=== PATIENT | female | born 1930 | race Caucasian/White ===

== ENCOUNTER → 2017-03-02 | Outpatient (CLI) | payer MEDICARE, BC ==
[2016-06-15 10:49] VITALS: BP 130/75
[~2017-03-02] MED LIST: ACET500T33 PO; ASPI81TA2 PO; CALC600T4 PO; GABA-586 PO; LOSA1TAB16 PO; MULT-99 PO; OMEP20CA9 PO; POTA2.5T PO; RALO60TA PO; TRAM50TA PO; VANC125C2 PO
--- NOTE | 2017-03-02 15:48 | KCIC ---
PROCEDURE MRI of the lumbar spine without contrast 03/02/2017 HISTORY Low back pain with left leg pain for several months. TECHNIQUE Unenhanced T1 weighted, T2 weighted and inversion recovery sagittal and T1 weighted and T2 weighted axial images of the lumbar spine were obtained. FINDINGS Mild S-shaped curvature of the thoracolumbar spine is seen. Degenerative signal changes are seen involving all of the discs of the lumbar spine. Degenerative signal changes are seen within the marrow surrounding these discs. Loss of height of the L1-2 and L2-3 discs is seen. Old compression deformity of the superior endplate of the L4 vertebral body is seen. There is no MRI evidence of an acute compression fracture involving the lumbar vertebrae. The conus medullaris is normal in morphology, position, and signal characteristics. At the T12-L1 disc space there is a mild generalized disc bulge. This is eccentric to the right. Degenerative changes are seen involving the facet joints bilaterally. These findings do not result in significant central spinal canal or neural foraminal stenosis. At the L2-3 disc space there is moderate generalized disc bulge. This is eccentric to the right. Degenerative changes are seen involving the facet joints bilaterally. There is moderate ligamentum flavum hypertrophy bilaterally. These findings when combined result in mild central spinal canal stenosis. Mild left greater than right neural foraminal stenosis is seen. At the L3-4 disc space there is a mild to moderate generalized disc bulge. Degenerative changes are seen involving the facet joints bilaterally. There is moderate ligamentum flavum hypertrophy bilaterally. These findings when combined result in mild to moderate left greater than right central spinal canal stenosis. Mild to moderate left greater than right neural foraminal stenosis is seen. At the L4-5 disc space there is a moderate generalized disc bulge. Degenerative changes are seen involving the facet joints bilaterally. There is moderate ligamentum flavum hypertrophy bilaterally. These findings when combined result in mild central spinal canal stenosis. Mild to moderate right greater than left neural foraminal stenosis is seen. At the L5-S1 disc space there is mild to moderate generalized disc bulge. This is eccentric to the right. Degenerative changes are seen involving the facet joints bilaterally. There is mild ligamentum flavum hypertrophy bilaterally. These findings when combined do not result in significant central flow could of stenosis. Mild right neural foraminal stenosis is seen. The left neural foramina is patent. IMPRESSION The changes of degenerative disc disease are seen throughout the lumbar spine. These findings result in mild central spinal canal stenosis at L2-3 and L4-5 and mild to moderate left greater than right central spinal canal stenosis at L3-4. Multilevel neural foraminal stenosis is seen as outlined above. Electronically signed by: Neeraj Abdalla MD (March 02, 2017 15:46:50)
== END | disposition home or self-care (01) ==
LOC: KCIC MRI 12:35
PROVIDERS: ATTEND Nurse Practitioner Gerontology
DX: M51.36 Other intervertebral disc degeneration, lumbar region (principal); M48.06 Spinal stenosis, lumbar region
CPT/HCPCS: 72148

== ENCOUNTER → 2017-03-30 | Outpatient (CLI) | payer MEDICARE, BC ==
[2016-06-15 10:49] VITALS: BP 130/75
[~2017-03-30] MED LIST changes: +ASPI-630 PO; -ASPI81TA2 PO; +IOHEXOL 180 MG/ML 10 ML VIAL. ONE; +methylPREDNISolone ACETATE 40 MG/ML VIAL. ONE; +methylPREDNISolone ACETATE 80 MG/ML VIAL. ONE
--- NOTE | 2017-03-31 00:32 | PAIN ---
DATE OF SERVICE: 03/30/2017 INITIAL CONSULTATION FOR PAIN CLINIC CHIEF COMPLAINT: Low back and left lower extremity pain. HISTORY OF PRESENT ILLNESS: This is an 86-year-old female who presents with history of pain for about a year, worse over the past few months, radiating from the low back into her left hip, posterior, lateral and anterior aspect of the thigh and the posterior knee across the low back, worse on the right than the left, but present bilaterally. The patient reports it is intermittent in intensity, but always present, changes during the day, aching, sharp, dull with radiating pain into the thighs, noted mostly in the lateral upper thigh than the medial and anterior lower thigh and to the posterior knee as well. The patient reports she had a full workup with Orthopedics including x-rays and a greater trochanteric bursa injection on the left, which was not successful in decreasing the pain. The patient reports it is worse with standing and walking, better with sitting. She reports it does not awaken her from sleep at night, does not affect her bowel or bladder control, but does affect her ability to walk. She is using a cane, which she has with her today in her right hand. The patient reports her disability rating from 0 to 10, 10 being the worst, is a 5 with family and home responsibilities, 7 with recreation and 3 with social activity and occupation, 1 with self care and 0 with life support activities. The patient has not had any form of physical therapies currently or other treatments just significant pain as noted. The patient did have MRI scan of the lumbar spine showing degenerative disk disease throughout the lumbar spine resulting in mild central spinal canal stenosis at L2-L3 and L4-L5, mild to moderate left greater than right central spinal canal stenosis at L3-L4. PAST MEDICAL HISTORY: Significant for hypertension, cataracts, diverticulosis, gastroesophageal reflux, arthritis, osteopenia, osteoarthritis. PREVIOUS SURGERY: Include bilateral cataract extractions, right total hip replacement, bilateral knee replacements and tonsillectomy. CURRENT MEDICATIONS: Include multivitamins, calcium, potassium, losartan, tramadol, acetaminophen, Avista, daily baby aspirin and omeprazole as well as gabapentin. ALLERGIES: THE PATIENT IS ALLERGIC TO AMOXICILLIN. FAMILY HISTORY: Significant for no major medical problems or conditions that she is aware of. SOCIAL HISTORY: The patient does not drink alcohol, does not smoke. Lives locally in [place], [place] and reports she is currently retired. REVIEW OF SYSTEMS: The patient's review of systems is positive for those items mentioned in history of present illness. All systems reviewed and otherwise negative. It is complete, full and well documented on the patient's chart. PHYSICAL EXAMINATION: VITAL SIGNS: Today, blood pressure is ____, pulse ____, respirations 16, temperature 98.5 degrees Fahrenheit. Height is 4 feet 11 inches, weight is 126 pounds. GENERAL: The patient is awake, alert, oriented, appropriate, very pleasant demeanor. HEENT: Head shows normocephalic, atraumatic. Extraocular movements are intact and symmetrical. Oral cavity, mucous membranes are moist and pink. Dentition is intact. NECK: Shows anterior throat supple without palpable lymphadenopathy noted. Swallow reflex is symmetrical. CHEST: Shows normal on inspection. Breath sounds are clear to auscultation bilaterally. HEART: Shows S1 and S2 clear. No murmurs auscultated. ABDOMEN: Soft, nontender, nondistended. No palpable organomegaly, no rebound or guarding demonstrated. BACK: The patient's back shows spine grossly in the midline. Slight exaggeration of thoracic kyphosis and mild flattening of lumbar lordotic curvature. No previous bruises, lesions, rashes or scars are noted. Lumbar paraspinous musculature shows symmetrical on inspection. On palpation shows a firm, but normal muscle girth with palpation and symmetrical. Tender diffusely in the low lumbar distribution bilaterally, but only diffusely and only in the paraspinous muscles. No tenderness over the spinous processes. No tenderness over the sacrum and sacroiliac regions. The patient shows good rotation and motion of lumbar spine, both laterally greater than 10 degrees right and left as well as extension greater than 10 degrees, forward flexion 45 degrees without pain reported. The patient's lower extremities show deep tendon reflexes at 1+ in the patellar and tendo calcaneus tendons. Motor exam is approximately 4 on a scale of 5, but equal and symmetrical bilaterally. Peripheral pulses are 1+ in posterior tibial and dorsalis pedis pulses. No peripheral edema is noted. No clubbing, no cyanosis. Lower extremities are warm and dry to touch, equal in color and appearance. The patient is able to stand, stand on her toes without significant difficulty, but she does lose balance fairly easily when standing on her toes. She is walking with a slight shuffling gait, appears to favor the left lower extremity slightly against cane in her right hand to ambulate. IMPRESSION: 1. This is an 86-year-old female with approximate 1 year history of increasing pain in low back across into the left lower extremity with some radicular qualities. 2. MRI scan of lumbar spine as noted. 3. Hypertension. 4. Arthritis. PLAN: Options were discussed with the patient including conservative medical management, physical therapy, and interventional techniques. She would like to proceed with interventional techniques. We discussed a lumbar epidural steroid injection using description as well as anatomical models to describe the procedure. Risks were then discussed including, but not limited to bleeding, infection, possibility of epidural hematoma, subsequent neurologic compromise, dural puncture, headaches, spinal cord and/or nerve damage, side effects of steroid medication and poor results regarding pain control. The patient understands and wishes to proceed. The patient will return to clinic in approximately 2 weeks for followup, was counseled on return appointment, activity level and side effects to be aware of. DIAGNOSES: Lumbar radiculopathy with lumbar degenerative disk disease, lumbar spinal stenosis. PROCEDURE: Lumbar epidural steroid injection in translaminar approach at L3-4 level using C-arm fluoroscopic guidance under sterile prep and drape and local anesthetic. MEDICATIONS INJECTED: Is 120 mg of Depo-Medrol plus 10 mL preservative-free normal saline and 2 mL of Isovue for contrast. CONDITION AT DISCHARGE: Stable. The patient tolerated procedure well, had no complications. YARELY VILLALPANDO MD DR: SONNY/shekhar JOB#: [id number] / [id number]
== END | disposition home or self-care (01) ==
LOC: PNCL 10:00
PROVIDERS: ATTEND Anesthesiology
DX: M51.16 Intervertebral disc disorders with radiculopathy, lumbar region (principal); M48.06 Spinal stenosis, lumbar region; M19.90 Unspecified osteoarthritis, unspecified site; I10 Essential (primary) hypertension; K21.9 Gastro-esophageal reflux disease without esophagitis; Z98.41 Cataract extraction status, right eye; Z98.42 Cataract extraction status, left eye; Z96.642 Presence of left artificial hip joint; Z96.653 Presence of artificial knee joint, bilateral; Z88.0 Allergy status to penicillin; Z79.82 Long term (current) use of aspirin
CPT/HCPCS: 62323; J1030; J1040

== ENCOUNTER → 2017-04-13 | Outpatient (CLI) | payer MEDICARE, BC ==
[2016-06-15 10:49] VITALS: BP 130/75
== END | disposition home or self-care (01) ==
LOC: PNCL 10:45
PROVIDERS: ATTEND Anesthesiology
DX: M51.16 Intervertebral disc disorders with radiculopathy, lumbar region (principal); M48.06 Spinal stenosis, lumbar region; Z86.14 Personal history of Methicillin resistant Staphylococcus aureus infection
CPT/HCPCS: 62323; J1030; J1040

== ENCOUNTER 2017-05-28 15:15 | Inpatient (IN) | payer MEDICARE, BC ==
[~2017-05-28] VITALS: Ht 147.3 cm; Wt 64.2 kg
[~2017-05-28 15:15] MED LIST changes: -IOHEXOL 180 MG/ML 10 ML VIAL. ONE; -methylPREDNISolone ACETATE 40 MG/ML VIAL. ONE; -methylPREDNISolone ACETATE 80 MG/ML VIAL. ONE
[2017-05-28] MEDS ORDERED: IV NORMAL SALINE 1000ML BAG 1,000 ML IV ONE (16:15)
[2017-05-28] MEDS ORDERED: HYDROcodone/APAP 5/325MG 1 TAB TABLET PO ONE (16:15)
[2017-05-28 17:11] LABS: BASO # 0.1 x10^3/uL (0.0-0.2); BASO % 1 % (0-3); EOS % 0 % (0-3); HEMATOCRIT 26.1 % (36.0-47.0); HEMOGLOBIN 8.7 g/dL (12.0-15.5); LYMPH # 1.5 x10^3/uL (1.0-4.8); LYMPH % 11 % (24-48); MEAN CORPUSCULAR HEMOGLOBIN 28 pg (25-35); MEAN CORPUSCULAR HGB CONC 34 g/dL (31-37); MEAN CORPUSCULAR VOLUME 85 fL (79-100); MONO % 9 % (0-9); NEUT % 79 % (31-73); PLATELET COUNT 375 x10^3/uL (140-400); RED BLOOD COUNT 3.08 x10^6/uL (3.50-5.40); RED CELL DISTRIBUTION WIDTH 14.6 % (11.5-14.5); WHITE BLOOD COUNT 13.7 x10^3/uL (4.0-11.0)
--- NOTE | 2017-05-28 17:12 | PHYS DOC ---
Past Medical History Past Medical History: Arthritis, GERD, Hypertension Additional Past Medical Histor: Osteoporosis, Chronic back pain Past Surgical History: Hip Replacement, Knee Replacement, Tonsillectomy, Other Additional Past Surgical Histo: Bx knee, R hip, Colectomy Alcohol Use: None Drug Use: None Adult General Chief Complaint Chief Complaint: UPPER EXTREMITY PAIN HPI HPI Patient is a 87 year old female who presents with nontraumatic right shoulder pain. Patient has history of arthritis. Patient she right shoulder pain is worse with palpation, range of motion. Patient has taken ibuprofen at home with limited relief. Of note, patient also was treated for this week for cellulitis of bilateral lower extremities. Patient is currently on clindamycin 3 times daily. She denies nausea vomiting or chills and sweats. On exam, the patient has diffuse erythema with mild swelling and warmth over both lower extremities, which the patient states is worsened since first treated 5 days ago. No fever chills or sweats. No other acute symptoms or complaints.Patient's PCP is Dr. Huizar. Review of Systems Review of Systems Review symptoms as per history of present illness. Current Medications Current Medications Current Medications Medications (Trade) Dose Ordered Sig/Tabatha Start Time Stop Time Status Last Admin Dose Admin Acetaminophen/ Hydrocodone Bitart (Lortab 5/325) 1 tab 1X ONCE 05/28/17 16:15 05/28/17 16:16 DC 05/28/17 16:37 1 TAB Sodium Chloride 1,000 ml @ 1,000 mls/hr 1X ONCE 05/28/17 16:15 05/28/17 17:14 Allergies Allergies Allergies Coded Allergies Type Severity Reaction Last Updated Verified No Known Drug Allergies 06/12/16 No Physical Exam Physical Exam Constitutional: Well developed, well nourished, no acute distress, non-toxic appearance. [] HENT: Normocephalic, atraumatic, bilateral external ears normal, oropharynx moist, no oral exudates, nose normal. [] Eyes: PERRLA, EOMI, conjunctiva normal, no discharge. [] Neck: Normal range of motion, no tenderness, supple, no stridor. [] Cardiovascular:Heart rate regular rhythm, no murmur [] Lungs & Thorax: Bilateral breath sounds clear to auscultation [] Abdomen: Bowel sounds normal, soft, no tenderness. [] Skin: Warm, dry, no erythema, no rash. [] Back: No tenderness.[] Extremities: Right shoulder pain without deformity, bruising and swelling. Pain with palpation and ROM. No motor weakness or loss sensation[] Neurologic: Alert and oriented X 3, normal motor function, normal sensory function, no focal deficits noted. [] Psychologic: Affect normal, judgement normal, mood normal. [] Current Patient Data Vital Signs Vital Signs Date Time Temp Pulse Resp B/P (MAP) Pulse Ox O2 Delivery O2 Flow Rate FiO2 05/28/17 15:31 100.9 96 18 127/61 (83) 97 Room Air 100.9 EKG EKG [] Radiology/Procedures Radiology/Procedures [XR chest/ Right shoulder: no displaced fracture, no acute pulmonary infiltrate. ] Course & Med Decision Making Course & Med Decision Making Pertinent Labs and Imaging studies reviewed. (See chart for details) [Patient febrile with cellultiis of B lower extremities. IVF, abx given. VSS. Dr. Mitchell to admit. ] Dragon Disclaimer Dragon Disclaimer This electronic medical record was generated, in whole or in part, using a voice recognition dictation system. Departure Departure Disposition: ADMITTED INPATIENT Admitting Physician: Sergio Mitchell Referrals: RICHARD HUIZAR MD (PCP) MARIA GUADALUPE CLANCY DO May 28, 2017 17:12
[2017-05-28] MEDS ORDERED: VANCOMYCIN 1GM IVPB FOR OMNI 250 ML IV ONE (17:30)
[2017-05-28 17:31] LABS: CALCIUM 8.6 mg/dL (8.5-10.1); CREATININE 1.6 mg/dL (0.6-1.0); GFR 30.4; POTASSIUM 3.8 mmol/L (3.5-5.1)
[2017-05-28 17:37] LABS: ALBUMIN/GLOBULIN RATIO 0.8 (1.0-1.7); C-REACTIVE PROTEIN 45.4 mg/L (0-3.3); TOTAL BILIRUBIN 0.3 mg/dL (0.2-1.0)
[2017-05-28] MEDS ORDERED: ONDANSETRON PF 4 MG/2 ML VIAL. IV PRN (18:15)
[2017-05-28 19:00] VITALS: BP 119/62
[2017-05-28] MEDS ORDERED: FURO40TA4 PO (20:36)
[2017-05-28] MEDS ORDERED: TRAM50TA PO (20:36)
[2017-05-28] MEDS ORDERED: BETA1TAB10 PO (20:36)
[2017-05-28] MEDS: IV NORMAL SALINE 1000ML BAG 1,000 ML IV SCH (21:17)
[2017-05-28 23:35] VITALS: BP 117/55
[2017-05-29] MEDS ORDERED: traMADol 50 MG TABLET PO PRN (00:15)
[2017-05-29] MEDS ORDERED: traMADol 50 MG TABLET PO ONE (00:15)
[2017-05-29 03:36] VITALS: BP 127/50
--- NOTE | 2017-05-29 04:48 | ACF ---
Admit Criteria Forms Admit Criteria Forms Admit Criteria Forms CELLULITIS Clinical Indications for Admission to Inpatient Care ([place]/check or initial the applicable condition/criteria) Admission is indicated for ANY ONE of the following(1)(2)(3)(4)(5): [ ]I. Limb-threatening infection [ ]II. High-risk comorbid condition as indicated by ANY ONE of the following: [ ]a) Uncontrolled diabetes (eg, HbA1c greater than 10% (0.1)) [ ]b) Cirrhosis [ ]c) Neutropenia [ ]d) Asplenia(12) [ ]e) Immunosuppression [ ]f) Symptomatic heart failure [ ]III. Failure of outpatient therapy as indicated by ALL of the following(6): [ ]a) Progression or no improvement after adequate trial (minimum of 48 hours, with longer period for stable lower extremity infection) [ ]b) Adequate antibiotic regimen as indicated by use of ANY ONE of the following: [ ]i) First-generation cephalosporin (e.g., cephalexin) [ ]ii) Antistaphylococcal penicillin (e.g., dicloxacillin) [ ]iii) Penicillin-allergic patient regimen (clindamycin, extended-spectrum fluoroquinolone, or doxycycline) [ ]iv) Resistant organism (eg, methicillin-resistant Staphylococcus aureus) regimen (7)(8) [ ]c) Outpatient intravenous therapy regimen is not appropriate due to ANY ONE of the following. (9)(10) [ ]i) It was tried and was not successful (eg, progression of infection). [ ]ii) It is not available or cannot be arranged in a clinically appropriate time frame (e.g., the next day). [ ]iii) Clinical presentation (eg, acuity of infection, rapidity of progression, confirmed or suspected bacteremia) is judged to require ALL of the following: [ ]1) Immediate initiation of intravenous therapy ( eg, cannot wait for next day) [ ]2) Intensity of patient monitoring and observation (eg, vital sign measurement, checks for infection progression) that cannot be provided at other than inpatient level of care [ ]IV. Altered Mental status that is severe or persistent [ ]V. Bacteremia [ ]. Hemodynamic instability [ ]VII. Suspected necrotizing soft tissue infection (e.g., gas in tissue)(13)( 14)(15) [ ]VIII. Orbital infection (16)(17) [ ]XI. Associated surgical procedure (e.g., abscess drainage, debridement) not amenable to outpatient, emergency department, or observation care [ ]X. Cutaneous gangrene(19) [ ]XII. High fever (temperature greater than 39.5 degrees C (103.1 degrees F) (oral)) not responsive to outpatient, emergency department, or observation care therapy(20)(21) [X ]XIII. Inpatient admission required [A]rather than observation care (Also use Cellulitis: Observation Care as appropriate) because of ANY ONE of the following(22)(23): [ ]a) Periorbital or perineal infection that is severe or worsening [ X]b) Severe pain requiring acute inpatient management [ ]b) IV fluid to replace significant ongoing (e.g., for over 24 hours) losses (greater than 3 L/m2 per day) [ ]b) Compartment syndrome monitoring (24) [ ]b) Strict or protective (eg, laminar flow) isolation) [ ]b) Urgent debridement or skin grafting [ ]b) Bone or joint debridement [ ]b) Immediate inpatient surgery [ X]b) Other condition, treatment, or monitoring requiring inpatient admission Extended stay beyond goal length of stay may be needed for(18)(36)(37)(38)(39)( 40)(41) [ ]a) Necrotizing soft tissue infection or fasciitis(13)(42) [ ]b) Gram-negative infection [ ]c) Methicillin-resistant Staphylococcal aureus (MRSA) infection(7)(43) [ ]d) Peripheral venous insufficiency with cellulitis [ ]e) Extensive edema [ ]f) Sepsis or continued Hemodynamic instability [ ]g) Continued high fever or mental status change [ ]h) Bacteremia(43) [ ]i) Active serious comorbid conditions ( eg, heart failure, renal insufficiency) The original [employer] content created by [employer] has been revised. The portions of the content which have been revised are identified through the use of italic text, and [employer] has neither reviewed nor approved the modified material. All other unmodified content is copyright [employer] Please see references footnoted in the original [employer] edition 2014 DAVID GAMINO May 29, 2017 04:48
[2017-05-29 05:35] LABS: BASO # 0.1 x10^3/uL (0.0-0.2); BASO % 1 % (0-3); EOS % 2 % (0-3); HEMATOCRIT 22.3 % (36.0-47.0); HEMOGLOBIN 7.6 g/dL (12.0-15.5); LYMPH # 1.3 x10^3/uL (1.0-4.8); LYMPH % 15 % (24-48); MEAN CORPUSCULAR HEMOGLOBIN 29 pg (25-35); MEAN CORPUSCULAR HGB CONC 34 g/dL (31-37); MEAN CORPUSCULAR VOLUME 85 fL (79-100); MONO % 12 % (0-9); NEUT % 70 % (31-73); PLATELET COUNT 320 x10^3/uL (140-400); RED BLOOD COUNT 2.63 x10^6/uL (3.50-5.40); RED CELL DISTRIBUTION WIDTH 14.6 % (11.5-14.5); WHITE BLOOD COUNT 8.9 x10^3/uL (4.0-11.0)
[2017-05-29 05:59] LABS: CALCIUM 7.8 mg/dL (8.5-10.1); CREATININE 1.3 mg/dL (0.6-1.0); GFR 38.7; POTASSIUM 3.6 mmol/L (3.5-5.1)
[2017-05-29] MEDS: LACTOBACILLUS ACIDOPH & BULGAR 1 TABLET. PO SCH ×3 (07:56→17:50)
[2017-05-29] MEDS: IV NORMAL SALINE 1000ML BAG 1,000 ML IV SCH (07:56)
[2017-05-29 08:01] VITALS: BP 138/85
--- NOTE | 2017-05-29 09:41 | RAD ---
Three-view right shoulder radiographs 05/28/2017 Clinical history: Right shoulder pain. AP internal and external rotation and transscapular digital radiographs of the right shoulder were obtained. There is diffuse osteopenia of the visualized bony structures. Moderate to severe degenerative changes are seen involving the right AC joint and right glenohumeral joint. A petra articular surface has developed between the superior humeral head and the inferior acromium. No fracture or dislocation of the right shoulder is seen. Impression: Degenerative changes are seen involving the right shoulder as outlined above. No acute osseous abnormality is seen.
--- NOTE | 2017-05-29 09:43 | RAD ---
AP portable chest radiograph 05/28/2017 Clinical History: Mid chest pain since earlier today. An AP portable erect digital radiograph of the chest was obtained. Comparison study is dated 06/12/2016. The cardiac silhouette is mildly enlarged. The thoracic aorta is tortuous. Atherosclerotic calcification of the thoracic aorta is seen. The thoracic aorta is mildly tortuous. No acute pulmonary infiltrate is seen. No pleural effusion or pneumothorax is noted. There is diffuse osteopenia of the visualized bony structures. Mild S-shaped curvature of the thoracolumbar spine is seen. Degenerative changes are seen involving the thoracic spine. Moderate to severe degenerative changes are seen involving both shoulders. There is a moderate-sized hiatal hernia. Impression: No acute abnormality is seen.
[2017-05-29 11:30] VITALS: BP 124/54
--- NOTE | 2017-05-29 11:37 | PDOC ---
Provider Note Provider Note [id number] MARCIAL RAIN MD May 29, 2017 11:37
[2017-05-29] MEDS: VANCOMYCIN PER PHARMACY MC PRN (11:43)
[2017-05-29] MEDS ORDERED: FUROSEMIDE 40 MG TABLET. PO SCH (12:00)
[2017-05-29] MEDS ORDERED: ASPIRIN CHEWABLE 81 MG TABLET. PO SCH (12:00)
[2017-05-29] MEDS: hydroCHLOROthiazide 12.5 MG CAPSULE PO SCH (12:40)
[2017-05-29] MEDS: RALOXIFENE 60 MG TABLET. PO SCH (12:40)
[2017-05-29] MEDS: PANTOPRAZOLE 40 MG TABLET.DR. PO SCH (12:40)
[2017-05-29] MEDS: LOSARTAN POTASSIUM 50 MG TABLET. PO SCH (12:40)
--- NOTE | 2017-05-29 12:50 | HP ---
ADMIT DATE: 05/28/2017 CHIEF COMPLAINT: Painful legs. HISTORY OF PRESENT ILLNESS: An 87-year-old white female, patient of Dr. Hobbs, who has been on clindamycin for some wounds on both legs and it has been getting worse and increasingly weak and came to the hospital. She has received a single dose of vancomycin and is feeling somewhat better. She was also noted to be moderately anemic, but is unaware of previous anemia and the family is unaware of this as well. Review of the old record shows that she was anemic about a year ago with the same hemoglobin around 8, MCV mildly low at 85, but no evaluation has been done to my knowledge this time. PAST MEDICAL HISTORY: MEDICATIONS: Listed per the chart. She takes aspirin daily, low dose. ALLERGIES: No allergies. ILLNESSES: No other serious known medical problems. PAST SURGICAL HISTORY: She has had bilateral knee replacements. SOCIAL HISTORY: , lives with family. Nonsmoker, nondrinker. FAMILY HISTORY: Unremarkable. REVIEW OF SYSTEMS: No other known problems. Denies melena, hematochezia, dysphagia, heartburn or any GI symptoms. PHYSICAL EXAMINATION: ENT: Moderate pallor, otherwise all within normal limits. NECK: No bruits, nodes or masses. LUNGS: Clear. CARDIOVASCULAR: Regular rate. Grade 2 systolic murmur throughout the precordium. ABDOMEN: Soft, benign and nontender. EXTREMITIES: 2+ pretibial edema. She has a 3 cm clean-looking wound, left anterior eaton and a small wound on the right posterior calf area with mild redness, but no streaking or purulence or sort of abscess formation. Pedal pulses are good. NEUROLOGIC: Physiologic and nonfocal, oriented x 4. ASSESSMENT: 1. Bilateral lower extremity cellulitis, likely from trauma-induced wounds. 2. Microcytic anemia, duration at least 1 year, etiology is unknown at this time. PLAN: We will hold aspirin and Lasix for now. Continue low dose of vancomycin. Check ferritin, B12 and she may need a transfusion that is discussed with family. MARCIAL RAIN MD DR: DILIA/shekhar JOB#: [id number] / [id number]
[2017-05-29 14:35] VITALS: BP 142/57
[2017-05-29] MEDS: VANCOMYCIN 1 GM in IV NORMAL SALINE 250ML 250 ML IV SCH (17:51)
[2017-05-29] MEDS: traMADol 50 MG TABLET PO PRN (17:51)
[2017-05-29 19:05] VITALS: BP 141/54
[2017-05-29] MEDS: GABAPENTIN 300 MG CAPSULE. PO SCH (20:08)
[2017-05-29] MEDS ORDERED: traMADol 50 MG TABLET PO SCH (21:00)
[2017-05-29 23:10] VITALS: BP 131/61
[2017-05-30 02:40] VITALS: BP 116/57
[2017-05-30 07:30] VITALS: BP 138/56
[2017-05-30] MEDS: RALOXIFENE 60 MG TABLET. PO SCH (08:03)
[2017-05-30] MEDS: PANTOPRAZOLE 40 MG TABLET.DR. PO SCH (08:03)
[2017-05-30] MEDS: LACTOBACILLUS ACIDOPH & BULGAR 1 TABLET. PO SCH ×3 (08:03→16:55)
[2017-05-30] MEDS: hydroCHLOROthiazide 12.5 MG CAPSULE PO SCH (08:03)
[2017-05-30] MEDS: LOSARTAN POTASSIUM 50 MG TABLET. PO SCH (08:05)
--- NOTE | 2017-05-30 08:10 | PDOC ---
Provider Note Provider Note vss, no temp- hb pending, ferritin normal, prior labs cons w/ anemia of chronic disease- will follow hb, stay off asa, cont vanc re cellultis, better- renal labs better also- R shoulder hurts less also, ? gout, check uric acid MARCIAL RAIN MD May 30, 2017 08:10
[2017-05-30] MEDS ORDERED: NON FORMULARY ITEM (Losartan/Hydrochlorothiazide (Losartan-Hctz 50-12.5 Mg Tab) 1 TAB) PO SCH (09:00)
[2017-05-30 10:20] LABS: HEMATOCRIT 25.9 % (36.0-47.0); HEMOGLOBIN 8.7 g/dL (12.0-15.5); RED BLOOD COUNT 3.04 x10^6/uL (3.50-5.40); RED CELL DISTRIBUTION WIDTH 14.6 % (11.5-14.5); WHITE BLOOD COUNT 9.7 x10^3/uL (4.0-11.0)
[2017-05-30 10:54] VITALS: BP 119/60
[2017-05-30 14:34] VITALS: BP 128/57
[2017-05-30] MEDS: traMADol 50 MG TABLET PO PRN (16:56)
[2017-05-30] MEDS: VANCOMYCIN 1 GM in IV NORMAL SALINE 250ML 250 ML IV SCH (18:36)
[2017-05-30] MEDS: VANCOMYCIN PER PHARMACY MC PRN (18:46)
[2017-05-30 19:00] VITALS: BP 150/70
[2017-05-30] MEDS ORDERED: MORPHINE SULFATE 4 MG/ML DISP.SYRIN. IV PRN ×2 (20:45)
[2017-05-30] MEDS: GABAPENTIN 300 MG CAPSULE. PO SCH (21:14)
[2017-05-30] MEDS ORDERED: traMADol 50 MG TABLET PO ONE (21:15)
[2017-05-30 23:00] VITALS: BP 124/58
[2017-05-31 03:02] VITALS: BP 119/58
[2017-05-31 07:34] VITALS: BP 130/73
[2017-05-31] MEDS: LACTOBACILLUS ACIDOPH & BULGAR 1 TABLET. PO SCH ×2 (07:59→12:00)
[2017-05-31] MEDS: PANTOPRAZOLE 40 MG TABLET.DR. PO SCH (08:00)
[2017-05-31] MEDS: RALOXIFENE 60 MG TABLET. PO SCH (08:00)
[2017-05-31] MEDS: LOSARTAN POTASSIUM 50 MG TABLET. PO SCH (09:00)
[2017-05-31] MEDS: hydroCHLOROthiazide 12.5 MG CAPSULE PO SCH (09:00)
--- NOTE | 2017-05-31 09:38 | PDOC ---
SUBJECTIVE Subjective feels better, swelling and erythema LE much better OBJECTIVE Vital Signs Vital Signs Date Time Temp Pulse Resp B/P (MAP) Pulse Ox O2 Delivery O2 Flow Rate FiO2 05/31/17 09:00 73 130/73 05/31/17 08:00 Room Air 05/31/17 07:34 99.1 86 18 130/73 (92) 95 Room Air 99.1 05/31/17 03:02 99.1 73 20 119/58 (78) 96 Room Air 99.1 05/30/17 23:00 99.5 74 20 124/58 (80) 99 Room Air 99.5 05/30/17 22:14 16 Room Air 05/30/17 21:14 18 Room Air 05/30/17 20:00 Room Air 05/30/17 19:00 98.8 89 20 150/70 (96) 97 Room Air 98.8 05/30/17 17:58 97 Room Air 05/30/17 16:56 97 Room Air 05/30/17 14:34 98.8 90 17 128/57 (80) 97 Room Air 98.8 05/30/17 10:54 98.4 79 18 119/60 (79) 97 Room Air 98.4 I & O Intake and Output 05/31/17 07:00 Intake Total 1050 ml Balance 1050 ml Intake Oral 1050 ml # Voids 5 PHYSICAL EXAM Physical Exam less edema LE no erythema , traumatic ulcer left leg better heart RRR abd soft lungs fairly clear ASSESSMENT/PLAN Assessment/Plan B 12 on low side, start B12 shot , home today on po ab, FOLLOW WOUND [facility]IC AND DR. HUIZAR Problems: COMMENT Lab Laboratory Tests Test 05/30/17 09:52 05/30/17 17:20 05/30/17 20:29 White Blood Count 9.7 x10^3/uL (4.0-11.0) Red Blood Count 3.04 x10^6/uL (3.50-5.40) Hemoglobin 8.7 g/dL (12.0-15.5) Hematocrit 25.9 % (36.0-47.0) Mean Corpuscular Volume 86 fL (79-100) Mean Corpuscular Hemoglobin 29 pg (25-35) Mean Corpuscular Hemoglobin Concent 33 g/dL (31-37) Red Cell Distribution Width 14.6 % (11.5-14.5) Platelet Count 329 x10^3/uL (140-400) Uric Acid 8.4 mg/dL (2.6-6.0) Vancomycin Level Trough 13.3 mcg/mL (10.0-20.0) Vancomycin Last Dose Date 05/29/17 Vancomycin Last Dose Time 1800 Glucose (Fingerstick) 112 mg/dL (70-99) MARIA GUADALUPE CASEY MD May 31, 2017 09:38
--- NOTE | 2017-05-31 10:19 | PDOC3 ---
Discharge Summary* Date of Admission: May 28, 2017 Date of Discharge: May 31, 2017 Admitting Diagnosis Problems Medical Problems: (1) Cellulitis of both lower extremities Status: Acute Problems: Final Diagnosis 1. cellulitis both LE 2.traumatic ulcer left LE 3.anemia multifactorial, chronic disease and B12 deficiency 4. CKD III 5.HTN 6.right shoulder rotator cuff pain 7.low back pain Problems Medical Problems: (1) Cellulitis of both lower extremities Status: Acute CONSULTS wound clinic Procedures CXR, shoulder xray Brief Hospital Course Ms. Nolan is a 87 old [sex] who presented with [ ] Disposition/Orders: D/C to Home w/ HH CONDITION AT DISCHARGE: Improved, Stable Diet: 2 gr sodium, Cardiac Scheduled Acetaminophen (Tylenol Extra Strength), 500 MG PO DAILY, (Reported) Aspirin (Aspirin), 1 TAB PO DAILY, (Reported) Calcium Carbonate (Calcium), 600 MG PO DAILY, (Reported) Furosemide (Furosemide), 40 MG PO DAILY, (Reported) Gabapentin (Gabapentin), 300 MG PO QHS, (Reported) Losartan/Hydrochlorothiazide (Losartan-Hctz 50-12.5 Mg Tab), 1 TAB PO DAILY, ( Reported) Omeprazole (Omeprazole), 1 CAP PO DAILY, (Reported) Potassium Gluconate (Potassium Gluconate), 2.5 MEQ PO DAILY, (Reported) Raloxifene Hcl (Evista), 1 TAB PO DAILY, (Reported) Tramadol Hcl (Tramadol Hcl), 1-2 TAB PO QHS, (Reported) Miscellaneous Medications Multivitamin W-Minerals/Lutein (Vision Plus Lutein Vitamin Tab), 1 EACH PO, ( Reported) Discontinued Medications Beta-Carotene(A) W-C & E/Min (Vision Vitamins), 1 EACH PO QHS, (Reported) Tramadol Hcl (Tramadol Hcl), 50 MG PO, (Reported) FOLLOW UP APPOINTMENT: wound clinic weekly Dr. Hobbs 1 week for B12 injection, home health for PT and wound care Time Spent Total time spent with patient [] minutes for coordination of care, counseling, and education. MARIA GUADALUPE CASEY MD May 31, 2017 10:19
[2017-05-31] MEDS ORDERED: ACID1TAB14 PO (10:21)
[2017-05-31] MEDS ORDERED: CLIN150C14 PO (10:21)
[2017-05-31] MEDS ORDERED: CYANOCOBALAMIN (VITAMIN B-12) 1,000 MCG/ML VIAL IM ONE (10:30)
[2017-05-31 10:40] VITALS: BP 128/55
[2017-05-31 14:32] VITALS: BP 133/70
== END 2017-05-31 15:13 | disposition home or self-care (01) | DRG 603 ==
LOC: ER 15:15 → 6 SOUTH 16:00
PROVIDERS: ADMIT Internal Medicine; ATTEND Internal Medicine
DX: L03.115 Cellulitis of right lower limb (principal); L97.829 Non-pressure chronic ulcer of other part of left lower leg with unspecified severity; D51.3 Other dietary vitamin B12 deficiency anemia; E44.1 Mild protein-calorie malnutrition; N18.3 Chronic kidney disease, stage 3 (moderate); D63.8 Anemia in other chronic diseases classified elsewhere; D50.9 Iron deficiency anemia, unspecified; L03.116 Cellulitis of left lower limb; I12.9 Hypertensive chronic kidney disease with stage 1 through stage 4 chronic kidney disease, or unspecified chronic kidney disease; M19.90 Unspecified osteoarthritis, unspecified site; K21.9 Gastro-esophageal reflux disease without esophagitis; M81.0 Age-related osteoporosis without current pathological fracture; M25.511 Pain in right shoulder; G89.29 Other chronic pain; Z96.649 Presence of unspecified artificial hip joint; Z96.653 Presence of artificial knee joint, bilateral; Z79.82 Long term (current) use of aspirin; Z90.49 Acquired absence of other specified parts of digestive tract; Z90.89 Acquired absence of other organs
CPT/HCPCS: 36415; 71010; 73030; 80048; 80053; 80202; 82607; 82728; 82962; 83605; 84550; 85025; 85027; 86140; 87040; 96361; 96374; J3370; J3420; J7030; J7050; 99285-25

== ENCOUNTER → 2017-06-02 | Outpatient (CLI) | payer MEDICARE, BC ==
[2017-05-31 10:40] VITALS: BP 128/55
[~2017-06-02] MED LIST changes: +ACID1TAB14 PO; +BETA1TAB10 PO; +CLIN150C14 PO; +FURO40TA4 PO
== END | disposition home or self-care (01) ==
LOC: PMGWOUND 11:44
PROVIDERS: ATTEND Emergency Medicine Undersea and Hyperbaric Medicine
DX: I87.313 Chronic venous hypertension (idiopathic) with ulcer of bilateral lower extremity (principal); L97.212 Non-pressure chronic ulcer of right calf with fat layer exposed; L97.222 Non-pressure chronic ulcer of left calf with fat layer exposed; M19.90 Unspecified osteoarthritis, unspecified site; I12.9 Hypertensive chronic kidney disease with stage 1 through stage 4 chronic kidney disease, or unspecified chronic kidney disease; N18.3 Chronic kidney disease, stage 3 (moderate)
CPT/HCPCS: 11042; 97597

== ENCOUNTER → 2017-06-09 | Outpatient (CLI) | payer MEDICARE, BC ==
[2017-05-31 10:40] VITALS: BP 128/55
== END | disposition home or self-care (01) ==
LOC: PMGWOUND 11:29
PROVIDERS: ATTEND Emergency Medicine Undersea and Hyperbaric Medicine
DX: I87.313 Chronic venous hypertension (idiopathic) with ulcer of bilateral lower extremity (principal); L97.212 Non-pressure chronic ulcer of right calf with fat layer exposed; L97.222 Non-pressure chronic ulcer of left calf with fat layer exposed; I12.9 Hypertensive chronic kidney disease with stage 1 through stage 4 chronic kidney disease, or unspecified chronic kidney disease; N18.3 Chronic kidney disease, stage 3 (moderate); M19.90 Unspecified osteoarthritis, unspecified site; M81.0 Age-related osteoporosis without current pathological fracture; K21.9 Gastro-esophageal reflux disease without esophagitis; Z90.49 Acquired absence of other specified parts of digestive tract; Z79.82 Long term (current) use of aspirin
CPT/HCPCS: 99214

== ENCOUNTER → 2017-06-23 | Outpatient (CLI) | payer MEDICARE, BC ==
[2017-05-31 10:40] VITALS: BP 128/55
== END | disposition home or self-care (01) ==
LOC: PMGWOUND 11:17
PROVIDERS: ATTEND Emergency Medicine Undersea and Hyperbaric Medicine
DX: I87.313 Chronic venous hypertension (idiopathic) with ulcer of bilateral lower extremity (principal); L97.212 Non-pressure chronic ulcer of right calf with fat layer exposed; L97.222 Non-pressure chronic ulcer of left calf with fat layer exposed; M81.0 Age-related osteoporosis without current pathological fracture; K21.9 Gastro-esophageal reflux disease without esophagitis; I12.9 Hypertensive chronic kidney disease with stage 1 through stage 4 chronic kidney disease, or unspecified chronic kidney disease; N18.3 Chronic kidney disease, stage 3 (moderate); M19.90 Unspecified osteoarthritis, unspecified site; Z90.49 Acquired absence of other specified parts of digestive tract; Z79.82 Long term (current) use of aspirin
CPT/HCPCS: 97597

== ENCOUNTER → 2017-07-07 | Outpatient (CLI) | payer MEDICARE, BC ==
[2017-07-04 15:00] VITALS: BP 124/80
[~2017-07-07] MED LIST changes: +VANC500V PO
== END | disposition home or self-care (01) ==
LOC: PMGWOUND 11:26
PROVIDERS: ATTEND Emergency Medicine Undersea and Hyperbaric Medicine
DX: I87.313 Chronic venous hypertension (idiopathic) with ulcer of bilateral lower extremity (principal); L97.212 Non-pressure chronic ulcer of right calf with fat layer exposed; L97.222 Non-pressure chronic ulcer of left calf with fat layer exposed; M81.0 Age-related osteoporosis without current pathological fracture; K21.9 Gastro-esophageal reflux disease without esophagitis; E78.5 Hyperlipidemia, unspecified; I12.9 Hypertensive chronic kidney disease with stage 1 through stage 4 chronic kidney disease, or unspecified chronic kidney disease; N18.3 Chronic kidney disease, stage 3 (moderate); M19.90 Unspecified osteoarthritis, unspecified site; Z79.82 Long term (current) use of aspirin; Z90.49 Acquired absence of other specified parts of digestive tract
CPT/HCPCS: 11042

== ENCOUNTER → 2017-07-14 | Outpatient (CLI) | payer MEDICARE, BC ==
[2017-07-04 15:00] VITALS: BP 124/80
== END | disposition home or self-care (01) ==
LOC: PMGWOUND 11:10
PROVIDERS: ATTEND Emergency Medicine Undersea and Hyperbaric Medicine
DX: I87.313 Chronic venous hypertension (idiopathic) with ulcer of bilateral lower extremity (principal); L97.212 Non-pressure chronic ulcer of right calf with fat layer exposed; L97.222 Non-pressure chronic ulcer of left calf with fat layer exposed; M81.0 Age-related osteoporosis without current pathological fracture; K21.9 Gastro-esophageal reflux disease without esophagitis; E78.5 Hyperlipidemia, unspecified; M19.90 Unspecified osteoarthritis, unspecified site; Z90.49 Acquired absence of other specified parts of digestive tract; Z79.82 Long term (current) use of aspirin
CPT/HCPCS: 97597

== ENCOUNTER → 2017-07-21 | Outpatient (CLI) | payer MEDICARE, BC ==
[2017-07-04 15:00] VITALS: BP 124/80
[~2017-07-21] MED LIST changes: -LOSA1TAB16 PO; +LOSA1TAB19 PO
== END | disposition home or self-care (01) ==
LOC: PMGWOUND 11:05
PROVIDERS: ATTEND Emergency Medicine Undersea and Hyperbaric Medicine
DX: I87.313 Chronic venous hypertension (idiopathic) with ulcer of bilateral lower extremity (principal); L97.212 Non-pressure chronic ulcer of right calf with fat layer exposed; L97.222 Non-pressure chronic ulcer of left calf with fat layer exposed; M19.90 Unspecified osteoarthritis, unspecified site; K21.9 Gastro-esophageal reflux disease without esophagitis; I12.9 Hypertensive chronic kidney disease with stage 1 through stage 4 chronic kidney disease, or unspecified chronic kidney disease; N18.3 Chronic kidney disease, stage 3 (moderate)
CPT/HCPCS: 97597

== ENCOUNTER → 2017-07-28 | Outpatient (CLI) | payer MEDICARE, BC ==
[2017-07-04 15:00] VITALS: BP 124/80
== END | disposition home or self-care (01) ==
LOC: PMGWOUND 10:37
PROVIDERS: ATTEND Emergency Medicine Undersea and Hyperbaric Medicine
DX: I87.313 Chronic venous hypertension (idiopathic) with ulcer of bilateral lower extremity (principal); L97.212 Non-pressure chronic ulcer of right calf with fat layer exposed; L97.222 Non-pressure chronic ulcer of left calf with fat layer exposed; M19.90 Unspecified osteoarthritis, unspecified site; I12.9 Hypertensive chronic kidney disease with stage 1 through stage 4 chronic kidney disease, or unspecified chronic kidney disease; N18.3 Chronic kidney disease, stage 3 (moderate); E78.5 Hyperlipidemia, unspecified
CPT/HCPCS: 97597

== ENCOUNTER → 2017-08-04 | Outpatient (CLI) | payer MEDICARE, BC ==
[2017-07-04 15:00] VITALS: BP 124/80
== END | disposition home or self-care (01) ==
LOC: PMGWOUND 10:53
PROVIDERS: ATTEND Emergency Medicine Undersea and Hyperbaric Medicine
DX: I87.313 Chronic venous hypertension (idiopathic) with ulcer of bilateral lower extremity (principal); L97.212 Non-pressure chronic ulcer of right calf with fat layer exposed; L97.222 Non-pressure chronic ulcer of left calf with fat layer exposed; E78.5 Hyperlipidemia, unspecified; I12.9 Hypertensive chronic kidney disease with stage 1 through stage 4 chronic kidney disease, or unspecified chronic kidney disease; N18.3 Chronic kidney disease, stage 3 (moderate); M19.90 Unspecified osteoarthritis, unspecified site; K21.9 Gastro-esophageal reflux disease without esophagitis; M81.0 Age-related osteoporosis without current pathological fracture; G89.29 Other chronic pain
CPT/HCPCS: 11042

== ENCOUNTER 2017-08-07 09:36 | Emergency (ER) | payer MEDICARE, BC ==
[~2017-08-07] VITALS: Ht 147.3 cm; Wt 54.4 kg
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
--- NOTE | 2017-08-07 10:42 | RAD ---
Three-view left hand radiographs 08/07/2017 Clinical history: Left hand pain post fall. PA, lateral and oblique digital radiographs of left hand were obtained. There is diffuse osteopenia of the visualized bony structures. An acute transverse fracture of the proximal metaphysis of the proximal phalanx of the left fifth finger is seen. Moderate anterior displacement and posterior and medial angulation of the distal fracture fragment is seen. No additional fracture of the left hand is seen. Moderate to severe degenerative changes are seen throughout the interphalangeal joints and MCP joints of the left hand. Severe degenerative changes are seen along the mid carpal joint and first carpal metacarpal joint. Impression: Acute fracture of the proximal phalanx of the left fifth finger as outlined above.
--- NOTE | 2017-08-07 10:53 | RAD ---
CT scan of the head without contrast 08/07/2017 Clinical History: Fall earlier today with head trauma. Frontal head pain and bruising,. Technique: Unenhanced, contiguous, 5 mm axial sections were obtained through the head. One or more of the following individualized dose reduction techniques were utilized for this study: 1. Automated exposure control. 2. Adjustment of the mA and/or kV according to patient size. 3. Use of iterative reconstruction technique. Findings: No previous studies are available for comparison. There is generalized parenchymal atrophy. Patchy, confluent and multiple focal areas areas of decreased attenuation are seen within the periventricular and subcortical white matter of both cerebral hemispheres consistent with areas of small vessel ischemic disease. No acute parenchymal abnormality is seen. No extra-axial fluid collection is noted. No skull fracture is seen. Soft tissue swelling associated 4 cm scalp hematoma on seen involving the frontal scalp, left greater than right. Impression: No acute intracranial abnormality is seen. CT scan of facial bones without contrast 08/07/2017 Clinical history: Fall earlier today striking front of head. Pain. Technique: Unenhanced, contiguous, 0.65 mm axial sections were obtained through the facial bones and orbits. 3 mm reconstructed sagittal axial and coronal images were obtained. One or more of the following individualized dose reduction techniques were utilized for this study: 1. Automated exposure control. 2. Adjustment of the mA and/or kV according to patient size. 3. Use of iterative reconstruction technique. Findings: An acute comminuted fracture is seen involving the nasal bone. There is associated soft tissue swelling. The fracture fragments are mildly depressed, anteriorly. No additional facial bone fractures seen. Both orbits are intact. Mild mucosal thickening is seen involving scattered ethmoid air cells bilaterally. No air-fluid level is seen. Impression: Acute comminuted fractures of the nasal bone as outlined above. No additional facial bone fracture is seen.
--- NOTE | 2017-08-07 10:55 | RAD ---
CT scan of the cervical spine without contrast 08/07/2017 Clinical history: Neck pain post fall earlier today. Technique: Unenhanced, contiguous, 0.625 mm axial sections were obtained through the cervical spine. 3 mm reconstructed sagittal, axial, and and coronal images were obtained. One or more of the following individualized dose reduction techniques were utilized for this study: 1. Automated exposure control. 2. Adjustment of the mA and/or kV according to patient size. 3. Use of iterative reconstruction technique. Findings: Sagittal and coronal reconstructed images demonstrate mild lateral curvature of the cervical spine convex to the right. There is straightening of the normal cervical lordosis. Incomplete segmentation of the C2 and C3 vertebrae is seen. Degenerative changes are seen throughout the remaining cervical disc spaces consisting of varying degrees of disc space narrowing, vertebral endplate sclerosis and mild to moderate anterior and posterior vertebral body osteophyte formation. No fracture or subluxation of the cervical vertebrae is seen. Degenerative changes are seen involving the uncovertebral and facet joints throughout the cervical disc spaces. Impression: No fracture or subluxation of the cervical vertebra is seen.
[2017-08-07 10:57] VITALS: BP 157/70
[2017-08-07] MEDS ORDERED: LIDOCAINE 1% / SOD BICARB 8.4% 20 ML VIAL. IJ ONE (11:00)
--- NOTE | 2017-08-07 12:33 | RAD ---
Three-view left hand radiographs 08/07/2017 Clinical history: Postreduction of a fracture of the proximal phalanx of the left fifth finger. PA, lateral, and oblique digital radiographs of the left hand were obtained. Comparison study is dated earlier today at 1002 hours. A splint has been placed around the left fifth finger. An acute transverse fracture of the proximal metaphysis of the proximal phalanx of the left fifth finger is again seen. The alignment has improved since the previous examination. No additional fracture is seen. Impression: Postreduction radiographs of the left hand as outlined above.
== END 2017-08-07 13:07 | disposition home or self-care (01) ==
LOC: ER 09:36
DX: S02.2XXA Fracture of nasal bones, initial encounter for closed fracture (principal); S62.617A Displaced fracture of proximal phalanx of left little finger, initial encounter for closed fracture; K21.9 Gastro-esophageal reflux disease without esophagitis; I10 Essential (primary) hypertension; G89.29 Other chronic pain; M81.0 Age-related osteoporosis without current pathological fracture; Z96.659 Presence of unspecified artificial knee joint; Z96.641 Presence of right artificial hip joint; W18.39XA Other fall on same level, initial encounter; Y93.89 Activity, other specified; Y99.8 Other external cause status; Y92.89 Other specified places as the place of occurrence of the external cause
CPT/HCPCS: 26725; 70450; 70486; 72125; 73130; 99284-25

== ENCOUNTER → 2017-08-11 | Outpatient (CLI) | payer MEDICARE, BC ==
[2017-08-07 10:57] VITALS: BP 157/70
== END | disposition home or self-care (01) ==
LOC: PMGWOUND 10:32
PROVIDERS: ATTEND Emergency Medicine Undersea and Hyperbaric Medicine
DX: I87.312 Chronic venous hypertension (idiopathic) with ulcer of left lower extremity (principal); L97.222 Non-pressure chronic ulcer of left calf with fat layer exposed; M81.0 Age-related osteoporosis without current pathological fracture; K21.9 Gastro-esophageal reflux disease without esophagitis; G89.29 Other chronic pain; I12.9 Hypertensive chronic kidney disease with stage 1 through stage 4 chronic kidney disease, or unspecified chronic kidney disease; N18.3 Chronic kidney disease, stage 3 (moderate); E78.5 Hyperlipidemia, unspecified; M19.90 Unspecified osteoarthritis, unspecified site; Z96.641 Presence of right artificial hip joint; Z96.659 Presence of unspecified artificial knee joint; Z90.49 Acquired absence of other specified parts of digestive tract
CPT/HCPCS: 97597

== ENCOUNTER → 2017-09-15 | Outpatient (CLI) | payer MEDICARE, BC ==
[2017-08-22 12:40] VITALS: BP 149/63
== END | disposition home or self-care (01) ==
LOC: PMGWOUND 10:55
PROVIDERS: ATTEND Emergency Medicine Undersea and Hyperbaric Medicine
DX: I87.313 Chronic venous hypertension (idiopathic) with ulcer of bilateral lower extremity (principal); L97.222 Non-pressure chronic ulcer of left calf with fat layer exposed; M19.90 Unspecified osteoarthritis, unspecified site; K21.9 Gastro-esophageal reflux disease without esophagitis; G89.29 Other chronic pain; I12.9 Hypertensive chronic kidney disease with stage 1 through stage 4 chronic kidney disease, or unspecified chronic kidney disease; N18.3 Chronic kidney disease, stage 3 (moderate); G62.9 Polyneuropathy, unspecified; M81.0 Age-related osteoporosis without current pathological fracture; E78.5 Hyperlipidemia, unspecified; Z90.49 Acquired absence of other specified parts of digestive tract; Z96.653 Presence of artificial knee joint, bilateral; Z96.641 Presence of right artificial hip joint
CPT/HCPCS: 99214

== ENCOUNTER 2017-10-03 11:32 | Emergency (ER) | payer OTHER, MEDICARE, BC ==
[~2017-10-03] VITALS: Ht 152.4 cm; Wt 54.4 kg
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
[2017-10-03 11:41] VITALS: BP 172/84
[2017-10-03] MEDS ORDERED: DIPHTH,PERTUSS(ACELL),TET TOX 0.5 ML DISP.SYRIN. VAX IM ONE (12:15)
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
== END 2017-10-03 13:54 | disposition home or self-care (01) ==
LOC: ER 11:32
DX: S51.811A Laceration without foreign body of right forearm, initial encounter (principal); M19.90 Unspecified osteoarthritis, unspecified site; K21.9 Gastro-esophageal reflux disease without esophagitis; I10 Essential (primary) hypertension; M81.0 Age-related osteoporosis without current pathological fracture; G89.29 Other chronic pain; Z96.653 Presence of artificial knee joint, bilateral; Z96.641 Presence of right artificial hip joint; Z90.49 Acquired absence of other specified parts of digestive tract; W22.8XXA Striking against or struck by other objects, initial encounter; Y93.39 Activity, other involving climbing, rappelling and jumping off; Y92.89 Other specified places as the place of occurrence of the external cause; Y99.8 Other external cause status
CPT/HCPCS: 71020; 73090; 99284-25

== ENCOUNTER → 2017-10-06 | Outpatient (CLI) | payer MEDICARE, BC ==
[2017-10-03 11:41] VITALS: BP 172/84
== END | disposition home or self-care (01) ==
LOC: PMGWOUND 10:58
PROVIDERS: ATTEND Emergency Medicine Undersea and Hyperbaric Medicine
DX: I87.313 Chronic venous hypertension (idiopathic) with ulcer of bilateral lower extremity (principal); L97.222 Non-pressure chronic ulcer of left calf with fat layer exposed; L97.211 Non-pressure chronic ulcer of right calf limited to breakdown of skin; M19.90 Unspecified osteoarthritis, unspecified site; K21.9 Gastro-esophageal reflux disease without esophagitis; G89.29 Other chronic pain; I12.9 Hypertensive chronic kidney disease with stage 1 through stage 4 chronic kidney disease, or unspecified chronic kidney disease; N18.3 Chronic kidney disease, stage 3 (moderate); G62.9 Polyneuropathy, unspecified; M81.0 Age-related osteoporosis without current pathological fracture; E78.5 Hyperlipidemia, unspecified; Z90.49 Acquired absence of other specified parts of digestive tract; Z96.653 Presence of artificial knee joint, bilateral; Z96.641 Presence of right artificial hip joint
CPT/HCPCS: 97597

== ENCOUNTER → 2017-10-13 | Outpatient (CLI) | payer MEDICARE, BC | END | disposition home or self-care (01) | LOC: PMGWOUND 10:58 | DX: I87.313 Chronic venous hypertension (idiopathic) with ulcer of bilateral lower extremity (principal); L97.222 Non-pressure chronic ulcer of left calf with fat layer exposed; L97.211 Non-pressure chronic ulcer of right calf limited to breakdown of skin; M19.90 Unspecified osteoarthritis, unspecified site; K21.9 Gastro-esophageal reflux disease without esophagitis; G89.29 Other chronic pain; I12.9 Hypertensive chronic kidney disease with stage 1 through stage 4 chronic kidney disease, or unspecified chronic kidney disease; N18.3 Chronic kidney disease, stage 3 (moderate); G62.9 Polyneuropathy, unspecified; M81.0 Age-related osteoporosis without current pathological fracture; E78.5 Hyperlipidemia, unspecified; Z90.49 Acquired absence of other specified parts of digestive tract; Z96.653 Presence of artificial knee joint, bilateral; Z96.641 Presence of right artificial hip joint | CPT/HCPCS: 97597 ==

== ENCOUNTER → 2017-10-20 | Outpatient (CLI) | payer MEDICARE, BC | END | disposition home or self-care (01) | LOC: PMGWOUND 11:17 | DX: I87.313 Chronic venous hypertension (idiopathic) with ulcer of bilateral lower extremity (principal); L97.222 Non-pressure chronic ulcer of left calf with fat layer exposed; L97.211 Non-pressure chronic ulcer of right calf limited to breakdown of skin; M19.90 Unspecified osteoarthritis, unspecified site; K21.9 Gastro-esophageal reflux disease without esophagitis; G89.29 Other chronic pain; I12.9 Hypertensive chronic kidney disease with stage 1 through stage 4 chronic kidney disease, or unspecified chronic kidney disease; N18.3 Chronic kidney disease, stage 3 (moderate); G62.9 Polyneuropathy, unspecified; M81.0 Age-related osteoporosis without current pathological fracture; E78.5 Hyperlipidemia, unspecified; Z90.49 Acquired absence of other specified parts of digestive tract; Z96.653 Presence of artificial knee joint, bilateral; Z96.641 Presence of right artificial hip joint | CPT/HCPCS: 97597 ==

== ENCOUNTER → 2017-10-24 | Outpatient (CLI) | payer MEDICARE, BC | END | disposition home or self-care (01) | LOC: PMGWOUND 10:45 | DX: I87.313 Chronic venous hypertension (idiopathic) with ulcer of bilateral lower extremity (principal); L97.222 Non-pressure chronic ulcer of left calf with fat layer exposed; L97.211 Non-pressure chronic ulcer of right calf limited to breakdown of skin; M19.90 Unspecified osteoarthritis, unspecified site; K21.9 Gastro-esophageal reflux disease without esophagitis; G89.29 Other chronic pain; I12.9 Hypertensive chronic kidney disease with stage 1 through stage 4 chronic kidney disease, or unspecified chronic kidney disease; N18.3 Chronic kidney disease, stage 3 (moderate); G62.9 Polyneuropathy, unspecified; M81.0 Age-related osteoporosis without current pathological fracture; E78.5 Hyperlipidemia, unspecified; Z90.49 Acquired absence of other specified parts of digestive tract; Z96.653 Presence of artificial knee joint, bilateral; Z96.641 Presence of right artificial hip joint | CPT/HCPCS: 29581; 97597 ==

== ENCOUNTER → 2017-10-28 | Outpatient (CLI) | payer MEDICARE, BC | END | disposition home or self-care (01) | LOC: PMGWOUND 07:57 | DX: I87.312 Chronic venous hypertension (idiopathic) with ulcer of left lower extremity (principal); L97.222 Non-pressure chronic ulcer of left calf with fat layer exposed; M19.90 Unspecified osteoarthritis, unspecified site; K21.9 Gastro-esophageal reflux disease without esophagitis; G89.29 Other chronic pain; I12.9 Hypertensive chronic kidney disease with stage 1 through stage 4 chronic kidney disease, or unspecified chronic kidney disease; N18.3 Chronic kidney disease, stage 3 (moderate); G62.9 Polyneuropathy, unspecified; M81.0 Age-related osteoporosis without current pathological fracture; E78.5 Hyperlipidemia, unspecified; Z90.49 Acquired absence of other specified parts of digestive tract; Z96.653 Presence of artificial knee joint, bilateral; Z96.641 Presence of right artificial hip joint | CPT/HCPCS: 29581 ==

== ENCOUNTER → 2017-11-01 | Outpatient (CLI) | payer MEDICARE, BC | END | disposition home or self-care (01) | LOC: PMGWOUND 08:25 | DX: I87.312 Chronic venous hypertension (idiopathic) with ulcer of left lower extremity (principal); E11.622 Type 2 diabetes mellitus with other skin ulcer; L97.222 Non-pressure chronic ulcer of left calf with fat layer exposed; K21.9 Gastro-esophageal reflux disease without esophagitis; E78.5 Hyperlipidemia, unspecified; G89.29 Other chronic pain; G62.9 Polyneuropathy, unspecified; M19.90 Unspecified osteoarthritis, unspecified site; E11.22 Type 2 diabetes mellitus with diabetic chronic kidney disease; I12.9 Hypertensive chronic kidney disease with stage 1 through stage 4 chronic kidney disease, or unspecified chronic kidney disease; N18.3 Chronic kidney disease, stage 3 (moderate); M81.0 Age-related osteoporosis without current pathological fracture; Z96.653 Presence of artificial knee joint, bilateral; Z96.641 Presence of right artificial hip joint; Z90.49 Acquired absence of other specified parts of digestive tract | CPT/HCPCS: 97597 ==

== ENCOUNTER → 2017-11-08 | Outpatient (CLI) | payer MEDICARE, BC | END | disposition home or self-care (01) | LOC: PMGWOUND 08:33 | DX: I87.312 Chronic venous hypertension (idiopathic) with ulcer of left lower extremity (principal); E11.622 Type 2 diabetes mellitus with other skin ulcer; L97.222 Non-pressure chronic ulcer of left calf with fat layer exposed; K21.9 Gastro-esophageal reflux disease without esophagitis; E78.5 Hyperlipidemia, unspecified; G89.29 Other chronic pain; G62.9 Polyneuropathy, unspecified; J20.9 Acute bronchitis, unspecified; E11.51 Type 2 diabetes mellitus with diabetic peripheral angiopathy without gangrene; M19.90 Unspecified osteoarthritis, unspecified site; E11.22 Type 2 diabetes mellitus with diabetic chronic kidney disease; I12.9 Hypertensive chronic kidney disease with stage 1 through stage 4 chronic kidney disease, or unspecified chronic kidney disease; N18.3 Chronic kidney disease, stage 3 (moderate); M81.0 Age-related osteoporosis without current pathological fracture; Z96.653 Presence of artificial knee joint, bilateral; Z96.641 Presence of right artificial hip joint; Z90.49 Acquired absence of other specified parts of digestive tract | CPT/HCPCS: 97597 ==

== ENCOUNTER → 2017-11-15 | Outpatient (CLI) | payer MEDICARE, BC | END | disposition home or self-care (01) | LOC: PMGWOUND 08:23 | DX: I87.312 Chronic venous hypertension (idiopathic) with ulcer of left lower extremity (principal); E11.622 Type 2 diabetes mellitus with other skin ulcer; L97.222 Non-pressure chronic ulcer of left calf with fat layer exposed; M19.90 Unspecified osteoarthritis, unspecified site; K21.9 Gastro-esophageal reflux disease without esophagitis; E78.5 Hyperlipidemia, unspecified; G89.29 Other chronic pain; G62.9 Polyneuropathy, unspecified; J20.9 Acute bronchitis, unspecified; E11.51 Type 2 diabetes mellitus with diabetic peripheral angiopathy without gangrene; E11.40 Type 2 diabetes mellitus with diabetic neuropathy, unspecified; E11.22 Type 2 diabetes mellitus with diabetic chronic kidney disease; I12.9 Hypertensive chronic kidney disease with stage 1 through stage 4 chronic kidney disease, or unspecified chronic kidney disease; N18.3 Chronic kidney disease, stage 3 (moderate); M81.0 Age-related osteoporosis without current pathological fracture; Z96.653 Presence of artificial knee joint, bilateral; Z96.641 Presence of right artificial hip joint; Z90.49 Acquired absence of other specified parts of digestive tract | CPT/HCPCS: 29581; 97597 ==

== ENCOUNTER → 2017-11-22 | Outpatient (CLI) | payer MEDICARE, BC | END | disposition home or self-care (01) | LOC: PMGWOUND 08:21 | DX: I87.312 Chronic venous hypertension (idiopathic) with ulcer of left lower extremity (principal); E11.622 Type 2 diabetes mellitus with other skin ulcer; L97.222 Non-pressure chronic ulcer of left calf with fat layer exposed; M19.90 Unspecified osteoarthritis, unspecified site; K21.9 Gastro-esophageal reflux disease without esophagitis; E78.5 Hyperlipidemia, unspecified; G89.29 Other chronic pain; G62.9 Polyneuropathy, unspecified; J20.9 Acute bronchitis, unspecified; E11.42 Type 2 diabetes mellitus with diabetic polyneuropathy; E11.51 Type 2 diabetes mellitus with diabetic peripheral angiopathy without gangrene; E11.22 Type 2 diabetes mellitus with diabetic chronic kidney disease; I12.9 Hypertensive chronic kidney disease with stage 1 through stage 4 chronic kidney disease, or unspecified chronic kidney disease; N18.3 Chronic kidney disease, stage 3 (moderate); M81.0 Age-related osteoporosis without current pathological fracture; Z96.653 Presence of artificial knee joint, bilateral; Z96.641 Presence of right artificial hip joint; Z90.49 Acquired absence of other specified parts of digestive tract | CPT/HCPCS: 97597 ==

== ENCOUNTER → 2017-11-29 | Outpatient (CLI) | payer MEDICARE, BC | END | disposition home or self-care (01) | LOC: PMGWOUND 08:33 | DX: I87.312 Chronic venous hypertension (idiopathic) with ulcer of left lower extremity (principal); E11.622 Type 2 diabetes mellitus with other skin ulcer; L97.222 Non-pressure chronic ulcer of left calf with fat layer exposed; E11.42 Type 2 diabetes mellitus with diabetic polyneuropathy; E11.51 Type 2 diabetes mellitus with diabetic peripheral angiopathy without gangrene; E11.22 Type 2 diabetes mellitus with diabetic chronic kidney disease; I12.9 Hypertensive chronic kidney disease with stage 1 through stage 4 chronic kidney disease, or unspecified chronic kidney disease; N18.3 Chronic kidney disease, stage 3 (moderate); M19.90 Unspecified osteoarthritis, unspecified site; K21.9 Gastro-esophageal reflux disease without esophagitis; E78.5 Hyperlipidemia, unspecified; J20.9 Acute bronchitis, unspecified; G89.29 Other chronic pain; Z96.641 Presence of right artificial hip joint; Z96.653 Presence of artificial knee joint, bilateral; Z90.49 Acquired absence of other specified parts of digestive tract | CPT/HCPCS: 97597 ==

== ENCOUNTER → 2017-12-13 | Outpatient (CLI) | payer MEDICARE, BC | END | disposition home or self-care (01) | LOC: PMGWOUND 08:40 | DX: I87.312 Chronic venous hypertension (idiopathic) with ulcer of left lower extremity (principal); E11.622 Type 2 diabetes mellitus with other skin ulcer; L97.222 Non-pressure chronic ulcer of left calf with fat layer exposed; E11.42 Type 2 diabetes mellitus with diabetic polyneuropathy; E11.51 Type 2 diabetes mellitus with diabetic peripheral angiopathy without gangrene; E11.22 Type 2 diabetes mellitus with diabetic chronic kidney disease; I12.9 Hypertensive chronic kidney disease with stage 1 through stage 4 chronic kidney disease, or unspecified chronic kidney disease; N18.3 Chronic kidney disease, stage 3 (moderate); M19.90 Unspecified osteoarthritis, unspecified site; K21.9 Gastro-esophageal reflux disease without esophagitis; E78.5 Hyperlipidemia, unspecified; J20.9 Acute bronchitis, unspecified; G89.29 Other chronic pain; Z96.641 Presence of right artificial hip joint; Z96.653 Presence of artificial knee joint, bilateral; Z90.49 Acquired absence of other specified parts of digestive tract | CPT/HCPCS: 97597 ==

== ENCOUNTER → 2017-12-27 | Outpatient (CLI) | payer MEDICARE, BC | END | disposition home or self-care (01) | LOC: PMGWOUND 08:20 | DX: I87.312 Chronic venous hypertension (idiopathic) with ulcer of left lower extremity (principal); E11.622 Type 2 diabetes mellitus with other skin ulcer; L97.222 Non-pressure chronic ulcer of left calf with fat layer exposed; E11.42 Type 2 diabetes mellitus with diabetic polyneuropathy; E11.51 Type 2 diabetes mellitus with diabetic peripheral angiopathy without gangrene; E11.22 Type 2 diabetes mellitus with diabetic chronic kidney disease; I12.9 Hypertensive chronic kidney disease with stage 1 through stage 4 chronic kidney disease, or unspecified chronic kidney disease; N18.3 Chronic kidney disease, stage 3 (moderate); M19.90 Unspecified osteoarthritis, unspecified site; K21.9 Gastro-esophageal reflux disease without esophagitis; E78.5 Hyperlipidemia, unspecified; J20.9 Acute bronchitis, unspecified; G89.29 Other chronic pain; Z96.641 Presence of right artificial hip joint; Z96.653 Presence of artificial knee joint, bilateral; Z90.49 Acquired absence of other specified parts of digestive tract | CPT/HCPCS: 29581; 97597 ==

== ENCOUNTER → 2017-12-30 | Outpatient (CLI) | payer MEDICARE, BC | END | disposition home or self-care (01) | LOC: PMGWOUND 07:50 | DX: I87.312 Chronic venous hypertension (idiopathic) with ulcer of left lower extremity (principal); E11.622 Type 2 diabetes mellitus with other skin ulcer; L97.222 Non-pressure chronic ulcer of left calf with fat layer exposed; E11.42 Type 2 diabetes mellitus with diabetic polyneuropathy; E11.51 Type 2 diabetes mellitus with diabetic peripheral angiopathy without gangrene; E11.22 Type 2 diabetes mellitus with diabetic chronic kidney disease; I12.9 Hypertensive chronic kidney disease with stage 1 through stage 4 chronic kidney disease, or unspecified chronic kidney disease; N18.3 Chronic kidney disease, stage 3 (moderate); M19.90 Unspecified osteoarthritis, unspecified site; K21.9 Gastro-esophageal reflux disease without esophagitis; E78.5 Hyperlipidemia, unspecified; J20.9 Acute bronchitis, unspecified; G89.29 Other chronic pain; Z96.641 Presence of right artificial hip joint; Z96.653 Presence of artificial knee joint, bilateral; Z90.49 Acquired absence of other specified parts of digestive tract | CPT/HCPCS: 29581 ==

== ENCOUNTER → 2018-01-03 | Outpatient (CLI) | payer MEDICARE, BC | END | disposition home or self-care (01) | LOC: PMGWOUND 08:18 | DX: I87.312 Chronic venous hypertension (idiopathic) with ulcer of left lower extremity (principal); E11.622 Type 2 diabetes mellitus with other skin ulcer; L97.222 Non-pressure chronic ulcer of left calf with fat layer exposed; E11.42 Type 2 diabetes mellitus with diabetic polyneuropathy; E11.51 Type 2 diabetes mellitus with diabetic peripheral angiopathy without gangrene; E11.22 Type 2 diabetes mellitus with diabetic chronic kidney disease; I12.9 Hypertensive chronic kidney disease with stage 1 through stage 4 chronic kidney disease, or unspecified chronic kidney disease; N18.3 Chronic kidney disease, stage 3 (moderate); M19.90 Unspecified osteoarthritis, unspecified site; K21.9 Gastro-esophageal reflux disease without esophagitis; E78.5 Hyperlipidemia, unspecified; J20.9 Acute bronchitis, unspecified; G89.29 Other chronic pain; Z96.641 Presence of right artificial hip joint; Z96.653 Presence of artificial knee joint, bilateral; Z90.49 Acquired absence of other specified parts of digestive tract | CPT/HCPCS: 29581; 97597 ==

== ENCOUNTER → 2018-01-10 | Outpatient (CLI) | payer MEDICARE, BC | END | disposition home or self-care (01) | LOC: PMGWOUND 08:15 | DX: I87.312 Chronic venous hypertension (idiopathic) with ulcer of left lower extremity (principal); E11.622 Type 2 diabetes mellitus with other skin ulcer; L97.222 Non-pressure chronic ulcer of left calf with fat layer exposed; E11.42 Type 2 diabetes mellitus with diabetic polyneuropathy; E11.51 Type 2 diabetes mellitus with diabetic peripheral angiopathy without gangrene; E11.22 Type 2 diabetes mellitus with diabetic chronic kidney disease; I12.9 Hypertensive chronic kidney disease with stage 1 through stage 4 chronic kidney disease, or unspecified chronic kidney disease; N18.3 Chronic kidney disease, stage 3 (moderate); M19.90 Unspecified osteoarthritis, unspecified site; K21.9 Gastro-esophageal reflux disease without esophagitis; E78.5 Hyperlipidemia, unspecified; J20.9 Acute bronchitis, unspecified; G89.29 Other chronic pain; Z96.641 Presence of right artificial hip joint; Z96.653 Presence of artificial knee joint, bilateral; Z90.49 Acquired absence of other specified parts of digestive tract | CPT/HCPCS: 29581 ==

== ENCOUNTER → 2018-01-17 | Outpatient (CLI) | payer MEDICARE, BC | END | disposition home or self-care (01) | LOC: PMGWOUND 08:12 | DX: I87.312 Chronic venous hypertension (idiopathic) with ulcer of left lower extremity (principal); E11.622 Type 2 diabetes mellitus with other skin ulcer; L97.222 Non-pressure chronic ulcer of left calf with fat layer exposed; E11.42 Type 2 diabetes mellitus with diabetic polyneuropathy; E11.51 Type 2 diabetes mellitus with diabetic peripheral angiopathy without gangrene; E11.22 Type 2 diabetes mellitus with diabetic chronic kidney disease; I12.9 Hypertensive chronic kidney disease with stage 1 through stage 4 chronic kidney disease, or unspecified chronic kidney disease; N18.3 Chronic kidney disease, stage 3 (moderate); M19.90 Unspecified osteoarthritis, unspecified site; K21.9 Gastro-esophageal reflux disease without esophagitis; E78.5 Hyperlipidemia, unspecified; J20.9 Acute bronchitis, unspecified; G89.29 Other chronic pain; Z96.641 Presence of right artificial hip joint; Z96.653 Presence of artificial knee joint, bilateral; Z90.49 Acquired absence of other specified parts of digestive tract | CPT/HCPCS: 15271; 29581; Q4131 ==

== ENCOUNTER → 2018-01-24 | Outpatient (CLI) | payer MEDICARE, BC | END | disposition home or self-care (01) | LOC: PMGWOUND 08:20 | DX: I87.312 Chronic venous hypertension (idiopathic) with ulcer of left lower extremity (principal); E11.622 Type 2 diabetes mellitus with other skin ulcer; L97.222 Non-pressure chronic ulcer of left calf with fat layer exposed; E11.42 Type 2 diabetes mellitus with diabetic polyneuropathy; E11.51 Type 2 diabetes mellitus with diabetic peripheral angiopathy without gangrene; E11.22 Type 2 diabetes mellitus with diabetic chronic kidney disease; I12.9 Hypertensive chronic kidney disease with stage 1 through stage 4 chronic kidney disease, or unspecified chronic kidney disease; N18.3 Chronic kidney disease, stage 3 (moderate); M19.90 Unspecified osteoarthritis, unspecified site; K21.9 Gastro-esophageal reflux disease without esophagitis; E78.5 Hyperlipidemia, unspecified; J20.9 Acute bronchitis, unspecified; G89.29 Other chronic pain; Z96.641 Presence of right artificial hip joint; Z96.653 Presence of artificial knee joint, bilateral; Z90.49 Acquired absence of other specified parts of digestive tract | CPT/HCPCS: 15271; 29581; Q4131 ==

== ENCOUNTER → 2018-01-31 | Outpatient (CLI) | payer MEDICARE, BC | END | disposition home or self-care (01) | LOC: PMGWOUND 08:22 | DX: I87.312 Chronic venous hypertension (idiopathic) with ulcer of left lower extremity (principal); E11.622 Type 2 diabetes mellitus with other skin ulcer; L97.222 Non-pressure chronic ulcer of left calf with fat layer exposed; E11.42 Type 2 diabetes mellitus with diabetic polyneuropathy; E11.51 Type 2 diabetes mellitus with diabetic peripheral angiopathy without gangrene; E11.22 Type 2 diabetes mellitus with diabetic chronic kidney disease; I12.9 Hypertensive chronic kidney disease with stage 1 through stage 4 chronic kidney disease, or unspecified chronic kidney disease; N18.3 Chronic kidney disease, stage 3 (moderate); M19.90 Unspecified osteoarthritis, unspecified site; K21.9 Gastro-esophageal reflux disease without esophagitis; E78.5 Hyperlipidemia, unspecified; J20.9 Acute bronchitis, unspecified; G89.29 Other chronic pain; Z96.641 Presence of right artificial hip joint; Z96.653 Presence of artificial knee joint, bilateral; Z90.49 Acquired absence of other specified parts of digestive tract | CPT/HCPCS: 29581 ==

== ENCOUNTER → 2018-02-07 | Outpatient (CLI) | payer MEDICARE, BC | END | disposition home or self-care (01) | LOC: PMGWOUND 08:56 | DX: I87.312 Chronic venous hypertension (idiopathic) with ulcer of left lower extremity (principal); E11.622 Type 2 diabetes mellitus with other skin ulcer; L97.222 Non-pressure chronic ulcer of left calf with fat layer exposed; E11.42 Type 2 diabetes mellitus with diabetic polyneuropathy; E11.51 Type 2 diabetes mellitus with diabetic peripheral angiopathy without gangrene; E11.22 Type 2 diabetes mellitus with diabetic chronic kidney disease; I12.9 Hypertensive chronic kidney disease with stage 1 through stage 4 chronic kidney disease, or unspecified chronic kidney disease; N18.3 Chronic kidney disease, stage 3 (moderate); M19.90 Unspecified osteoarthritis, unspecified site; K21.9 Gastro-esophageal reflux disease without esophagitis; E78.5 Hyperlipidemia, unspecified; J20.9 Acute bronchitis, unspecified; G89.29 Other chronic pain; Z96.641 Presence of right artificial hip joint; Z96.653 Presence of artificial knee joint, bilateral; Z90.49 Acquired absence of other specified parts of digestive tract | CPT/HCPCS: 99213 ==

== ENCOUNTER → 2018-07-12 | Outpatient (CLI) | payer MEDICARE, BC ==
[~2018-07-12] MED LIST changes: +ASCO500C PO; +CYAN250012 PO; +IOHEXOL 180 MG/ML 10 ML VIAL. ONE; +LIDOCAINE 2% PF 2ML VIAL. ONE; +iron; +methylPREDNISolone ACETATE 40 MG/ML VIAL. ONE; +methylPREDNISolone ACETATE 80 MG/ML VIAL. ONE
--- NOTE | 2018-07-12 14:06 | PAIN ---
DATE OF SERVICE: 07/12/2018 DIAGNOSES: Lumbar radiculopathy with lumbar degenerative disk disease, lumbar spinal stenosis. HISTORY OF PRESENT ILLNESS: The patient is an 88-year-old female who returns for followup status post previous lumbar epidural steroid injection, last seen 04/13/2017. The patient did well, about 50% improvement after the injection. She reports the pain has been returning now and over the past year or so, is becoming worse in the past 6 months. The patient reports initially, she was increasing her distance walking, activities around the house as well as at home as well as recreational and traveling with her daughter. The patient reports she sleeps well at night, does not awaken her from sleep. Reports the pain is in the low back, primarily slightly worse on the left than the right but radiates in the lower extremities at times as well, mostly in the anterior thighs and medial knees. The patient reports it is aching and cramping in quality with some stabbing and sharper pain in the low back itself, but without specific pattern right than the left, it is across the low back bilaterally. The patient reports her pain is a 7 on a scale of 10 at its worst, 5 on average, 3 at its least and is a 5 today. She is walking with a walker and keeps this with her for all ambulation. The patient reports no new motor or sensory deficits, no new bowel or bladder incontinence or other complaints. PHYSICAL EXAMINATION: VITAL SIGNS: The patient's blood pressure 128/63, pulse 62, respirations 16, temperature is 97.4 degrees Fahrenheit, height is 4 feet 11 inches, weight is 127 pounds. GENERAL: The patient is awake, alert, oriented, appropriate, very pleasant demeanor. HEENT: Head shows normocephalic, atraumatic. Extraocular movements are intact, symmetrical. Oral cavity: Mucous membranes moist and pink. Dentition is intact. NECK: Shows anterior throat supple without palpable lymphadenopathy noted. Swallow reflex is symmetrical. CHEST: Shows normal on inspection. Breath sounds clear to auscultation bilaterally. HEART: Shows S1, S2 clear. No murmurs auscultated. ABDOMEN: Soft, nontender, nondistended. No palpable organomegaly is noted. No rebound or guarding demonstrated. BACK: Shows spine grossly in the midline. Normal appearing thoracic kyphosis and lumbar lordotic curvature. Lumbar paraspinous musculature shows symmetrical on inspection with palpation shows some mild tenderness but only diffusely throughout the upper, middle and lower distribution of paraspinous muscles bilaterally without radiation. The patient has good rotational motion, both laterally as well as extension and flexion without significant increase in pain. EXTREMITIES: Lower extremities show deep tendon reflexes 1+ in the patellar and tendo calcaneus tendons. Motor exam is strong with approximately 4 on a scale of 5, but equal dorsiflexion, extension, quadriceps and hamstring flexion and symmetrical. Peripheral pulses are 1+ posterior tibia. No peripheral edema is noted. Options were discussed with the patient. The patient's old chart was reviewed as his current medication regimen and updated. Current review of systems is updated today as well and we will proceed with a lumbar epidural steroid injection today with fluoroscopic guidance. Risks were again discussed including, but not limited to bleeding, infection, possibility of epidural hematoma, subsequent neurological compromise, dural puncture, headaches, spinal cord and/or nerve damage, side effects of steroid medication and poor results regarding pain control. The patient understands and wished to proceed. The patient will return to clinic in approximately 2 weeks for followup, was counseled on return appointment, activity level and side effects to be aware of. DIAGNOSES: Lumbar radiculopathy with lumbar spinal stenosis, lumbar degenerative disk disease. PROCEDURE: Lumbar epidural steroid injection, translaminar approach, L3-L4 level using C-arm fluoroscopic guidance under sterile prep and drape using local anesthetic. MEDICATION INJECTED: A total of 120 mg Depo-Medrol plus 10 mL of preservative-free normal saline and 2 mL of Isovue for contrast. CONDITION AT DISCHARGE: Stable. The patient tolerated the procedure well, had no complications. YARELY VILLALPANDO MD DR: SONNY/shekhar JOB#: [id number] / [id number]
== END | disposition home or self-care (01) ==
LOC: PNCL 08:27
PROVIDERS: ATTEND Anesthesiology
DX: M51.16 Intervertebral disc disorders with radiculopathy, lumbar region (principal); M48.061 Spinal stenosis, lumbar region without neurogenic claudication
CPT/HCPCS: 62323; J1030; J1040; J2001; Q9965

== ENCOUNTER → 2018-11-29 | Outpatient (CLI) | payer MEDICARE, BC ==
[~2018-11-29] MED LIST changes: -GABA-586 PO; +GABA300C18 PO; -IOHEXOL 180 MG/ML 10 ML VIAL. ONE; -LIDOCAINE 2% PF 2ML VIAL. ONE; -methylPREDNISolone ACETATE 40 MG/ML VIAL. ONE; -methylPREDNISolone ACETATE 80 MG/ML VIAL. ONE
--- NOTE | 2018-11-29 11:56 | PAIN ---
DATE OF SERVICE: 11/29/2018 PROGRESS NOTE FOR PAIN CLINIC DIAGNOSES: Lumbar radiculopathy with lumbar spinal stenosis, lumbar degenerative disk disease. HISTORY OF PRESENT ILLNESS: The patient is an 88-year-old female who returns for followup status post lumbar epidural steroid injections x 3, most recently seen 07/12/2018. The patient did very well, reports about 50% improvement overall with the low back pain and left greater than right lower extremity pain. The patient reports the pain has returned now over the past 1-2 months in the low back, left leg, mostly in the posterior lateral and anterior aspect of the thigh, medial lower leg as well. The patient reports it as 8 on a scale of 10 that is at its worst, average and 6 at its least and is a 6 today. The patient reports it is radiating, becoming more constant, worse with walking, standing, change in positions. The patient still using a walker to ambulate, which does help to some extent, but reports that she has been slowing down since she was last here in all of her activities because of the pain. The patient reports that she sleeps about 7-8 hours a night, does not awaken her from sleep, better with sitting or lying down, much worse with standing, walking, weightbearing. The patient reports no new motor or sensory deficits, no new bowel or bladder incontinence or other complaints. PHYSICAL EXAMINATION: VITAL SIGNS: The patient's blood pressure 133/73, pulse 85, respirations are 16, temperature is 98.6 degrees Fahrenheit, height is 4 feet 11 inches and weight is 135 pounds. GENERAL: The patient is awake, alert, oriented, appropriate, very pleasant demeanor. The patient is accompanied by her daughter. HEENT: Head shows normocephalic, atraumatic. Extraocular movements are intact and symmetrical. The patient wears eye glasses. Oral cavity: Mucous membranes moist and pink. Dentition is intact. NECK: Shows anterior throat supple without palpable lymphadenopathy noted. Swallow reflex symmetrical. CHEST: Shows normal with inspection. Breath sounds clear to auscultation bilaterally. HEART: Shows S1, S2 clear. No murmurs auscultated. ABDOMEN: Soft, nontender, nondistended. No palpable organomegaly is noted. No rebound or guarding demonstrated. BACK: Shows spine grossly in the midline, slight exaggeration of thoracic kyphosis and minor flattening of lumbar lordotic curvature. Lumbar paraspinal muscle shows symmetrical on inspection, on palpation shows some moderate tenderness diffusely bilaterally, but only diffusely without radiation. No tenderness over the spinous processes, sacrum or sacroiliac regions. The patient has good rotational motion of lumbar spine, both laterally as well as extension and flexion without significant increase in pain. EXTREMITIES: Lower extremities show deep tendon reflexes at 1+ in the patellar and tendo-calcaneus tendons are equal. Motor exam is strong with approximately 4 on a scale of 5 with symmetrical dorsiflexion, extension, quadriceps and hamstring flexion. The patient has approximately 1+ pitting edema in the left ankle, but not the right and some mild purplish discoloration from previous cellulitis, which she has had flared up time to time on the left leg as well. Right side shows no changes. Peripheral pulses are 1+ posterior tibial. No peripheral edema is noted on the left, but about 1+ on the right. PLAN: Options were discussed with the patient. The patient's old chart was reviewed as her current medication regimen updated. Current review of systems updated today as well and we discussed options including conservative medical management, physical therapy, interventional techniques. She would like to wait on interventional technique though she has done well with these in the past. She does not feel up to that today. We did discuss the Medrol Dosepak with her and her daughter. She would like to try this. Instructions and side effects to be aware of were discussed especially with stomach upset and any flaring of her cellulitis in her legs. She will keep a close eye on this and they do this at her assisted living facility as well. The patient will return to clinic after the Medrol Dosepak is completed and the week after that and see if doing significantly better, we will wait for a while, if not did discuss potential for lumbar epidural steroid injection on next visit. YARELY VILLALPANDO MD DR: SONNY/shekhar JOB#: [id number] / [id number]
== END | disposition home or self-care (01) ==
LOC: PNCL 10:08
PROVIDERS: ATTEND Anesthesiology
DX: M51.16 Intervertebral disc disorders with radiculopathy, lumbar region (principal); M48.061 Spinal stenosis, lumbar region without neurogenic claudication
CPT/HCPCS: G0463